=== PATIENT | male | born 1980 | race Caucasian/White ===

== ENCOUNTER → 2023-01-31 | Outpatient (CLI) | payer OTHER, SELFPAY ==
--- NOTE | 2023-01-31 12:34 | RAD_ITS ---
STUDY: X-RAY - RIGHT ANKLE REASON FOR EXAM: Male, 42 years old. ANKLE PAIN TECHNIQUE: 3 view(s) of the ankle. COMPARISON: None. FINDINGS: In the distal fibula there is a visualized well-circumscribed eccentric cortical lesion measuring 2 x 0.8 cm with a narrow zone of transition compatible with a benign bone lesion, ossified fibroma. Normal medial and lateral malleoli. Normal tibiotalar articulation and ankle mortise. Normal visualized talus and calcaneus. The visualized subtalar, talonavicular, calcaneocuboid and tarsal articulations are normal. The soft tissue structures are unremarkable. RAD/Ankle min 3 Views IMPRESSION: No visualized acute fracture. Incidental visualization of a benign bone lesion in the distal tibia.. Electronically Signed: Fara Santiago MD at 1:21 EDT ,
[2023-01-31 13:10] LABS: Bacteria 0 SEEN /hpf (None Seen); Mucous, Urine 0 SEEN /hpf (<or=2+); Squamous Epithelial Cells - UA 0 SEEN /hpf (0-5); White Blood Cells 0 SEEN /hpf (0-5)
[2023-01-31 15:37] LABS: Color, Urine Yellow (Yellow); Glucose, Dipstick Normal (Normal); Ketone-Dipstick Negative (Negative); Leukocyte Esterase-Dipstick Negative /ul (Negative); Nitrite-Dipstick Negative (Negative); Occult Blood-Urine 25 /ul (Negative); Protein-Dipstick Negative (Negative); Urine Bilirubin Dipstick Negative (Negative); Urine Clarity Clear (Clear); Urine Urobilinogen Normal (Normal)
[2023-01-31 15:42] LABS: Absolute Lymphocyte Count 2.37 X10^3/uL (0.83-4.51); Absolute Neutrophil Count 3.5 X10^3/uL (2.0-7.7); Basophil# 0.09 X10^3/uL; Basophil% 1.3 % (0-1); Eosinophil# 0.42 X10^3/uL; Eosinophils% 5.9 % (0-5); Hematocrit 45.3 % (40-54); Lymphocyte # 2.37 X10^3/ul (0.83-4.51); Lymphocyte % 33.6 % (19-41); Mean Corp Hgb Conc 33.1 g/dL (32-36); Mean Corpuscular Hgb 29.1 pg (27.0-32.0); Mean Corpuscular Volume 87.8 fL (80-94); Monocyte# 0.63 X10^3/uL; Monocyte% 8.9 % (0-10); NRBC Flagged by Analyzer 0 % (0-5); Neutrophil # 3.53 X10^3/uL (2.7-7.7); Platelet Count 322 K/mm3 (150-450); RBC Distribution Width CV 12.2 % (11.6-14.6); RBC Distribution Width SD 39.5 fl (35.1-43.9); Red Blood Count 5.16 M/mm3 (4.6-6.2); White Blood Count 7.1 K/mm3 (4.4-11.0)
[2023-01-31 15:50] LABS: Red Blood Cells-Urine 0-5 SEEN /hpf (0-5)
[2023-01-31 15:59] LABS: ALB/GLOB Ratio 1.2 RATIO (0.9-2.4); AST(SGOT) 23 U/L (15-37); Alanine Aminotransfer ALT/SGPT 40 U/L (16-61); Alkaline Phosphatase 68 U/L (45-117); Anion Gap 3 (5-15); BUN 21 mg/dL (7-18); BUN/Creat Ratio 19.4 RATIO (10-20); Calcium,Total 9.1 mg/dL (8.5-10.1); Chloride 102 mmol/L (98-107); Cholesterol 203 mg/dL (200); Creatinine, Serum 1.08 mg/dL (0.70-1.30); EST Glomerular Filtration Rate 79 mL/min (>60); Est Glom Filt Rate - Afr Amer 95 mL/min (>60); Globulin 3.2 g/dL (2.2-4.2); Glucose 100 mg/dL (74-106); High Density Lipoprotein 64 mg/dL; Potassium 4.2 mmol/L (3.5-5.1); Protein, Total 7.2 g/dL (6.4-8.2); Sodium Level 135 mmol/L (136-145); Thyroid Stim Hormone (TSH) 1.16 uIU/mL (0.358-3.74); Triglycerides 83 mg/dL; Very Low Density Lipoprotein 17 mg/dL (5-40)
== END | disposition home or self-care (01) ==
PROVIDERS: PCP Family Medicine; Referring Provider Family Medicine; Visit Provider Family Medicine
DX: Z00.00 Encounter for general adult medical examination without abnormal findings (principal); M25.571 Pain in right ankle and joints of right foot; F17.220 Nicotine dependence, chewing tobacco, uncomplicated
CPT/HCPCS: 36415; 73610; 80053; 80061; 81001; 84443; 85025

== ENCOUNTER → 2023-05-22 | Outpatient (CLI) | payer OTHER, SELFPAY ==
[2023-05-22 18:06] LABS: Absolute Lymphocyte Count 2.01 X10^3/uL (0.83-4.51); Absolute Neutrophil Count 4.2 X10^3/uL (2.0-7.7); Basophil# 0.09 X10^3/uL; Basophil% 1.2 % (0-1); Eosinophil# 0.66 X10^3/uL; Eosinophils% 8.6 % (0-5); Hematocrit 44.7 % (40-54); Hemoglobin 14.9 g/dL (13.0-16.5); Lymphocyte # 2.01 X10^3/ul (0.83-4.51); Lymphocyte % 26.1 % (19-41); Mean Corp Hgb Conc 33.3 g/dL (32-36); Mean Corpuscular Hgb 29.4 pg (27.0-32.0); Mean Corpuscular Volume 88.2 fL (80-94); Mean Platelet Vol. 10.6 fl (6.2-12.0); Monocyte# 0.73 X10^3/uL; Monocyte% 9.5 % (0-10); NRBC Flagged by Analyzer 0 % (0-5); Neutrophil % 54.5 % (47-70); Platelet Count 358 K/mm3 (150-450); RBC Distribution Width CV 12.1 % (11.6-14.6); RBC Distribution Width SD 39.4 fl (35.1-43.9); Red Blood Count 5.07 M/mm3 (4.6-6.2); White Blood Count 7.7 K/mm3 (4.4-11.0)
[2023-05-22 18:34] LABS: ALB/GLOB Ratio 1.2 RATIO (0.9-2.4); AST(SGOT) 22 U/L (15-37); Alanine Aminotransfer ALT/SGPT 44 U/L (16-61); Alkaline Phosphatase 70 U/L (45-117); Anion Gap 6 (5-15); BUN 19 mg/dL (7-18); BUN/Creat Ratio 18.3 RATIO (10-20); Calcium,Total 8.7 mg/dL (8.5-10.1); Chloride 103 mmol/L (98-107); Cholesterol 192 mg/dL (200); Creatinine, Serum 1.04 mg/dL (0.70-1.30); EST Glomerular Filtration Rate 82 mL/min (>60); Est Glom Filt Rate - Afr Amer 100 mL/min (>60); Globulin 3.3 g/dL (2.2-4.2); Glucose 92 mg/dL (74-106); High Density Lipoprotein 57 mg/dL; Potassium 3.9 mmol/L (3.5-5.1); Protein, Total 7.3 g/dL (6.4-8.2); Sodium Level 138 mmol/L (136-145); Triglycerides 219 mg/dL; Troponin-I HS 4 pg/mL (3.0-78.0); Very Low Density Lipoprotein 44 mg/dL (5-40)
== END | disposition home or self-care (01) ==
LOC: MFPLAB 16:14
PROVIDERS: PCP Family Medicine; Visit Provider Family Medicine
DX: R07.89 Other chest pain (principal)
CPT/HCPCS: 36415; 80053; 80061; 84484; 85025

== ENCOUNTER → 2023-06-19 | Outpatient (CLI) | payer OTHER, SELFPAY ==
--- NOTE | 2023-06-19 13:41 | STE_ITS ---
Reason For Study: Chest Pain Stress Results Protocol: Stress Echocardiogram-Rasta Protocol Maximum Predicted HR: 176 bpm Target HR: 150 bpm % Maximum Predicted HR: 92 % DurationHeart Rate Stage (mm:ss) (bpm) BP Comment Baseline 51 118/81Patient denies any chest pain Stage 1 3:00 83 144/71Patient denies chest pain Stage 2 3:00 106 150/70Patient denies chest pain Stage 3 3:00 146 180/80Patient denies chest pain Stage 4 3:00 148 208/86Patient denies chest pain Stage 5 1:00 162 / Leg fatigue, mild shortness of breath, no chest pain Recovery 92 146/80Patient denies chest pain Stress Duration: 13:00 mm:ss Maximum Stress HR: 162 bpm Baseline Echocardiogram Findings Stress Echo Wall motion Data Resting WM Intermediate WM Stress WM ECHO/Stress Test Echo w/o Contrast Interpretation Summary Stress echocardiogram. Reason for evaluation chest pain. Stress EKG. Resting EKG demonstrates sinus bradycardia with a rate of 50 bpm normal interva ls are noted resting blood pressure is 118/81 mmHg. The patient exercised according to regular Rasta protocol for total duration of 13 minutes completing 1 minute into stage V of the Rasta protocol t he maximum heart rate attained was 164 bpm which was 93% of max impacted heart rate the maximum workl oad was 17.2 metabolic equivalents. At rest there were no ST or T wave changes noted suggest ischemia and at peak exercise upsloping ST changes were noted which did not meet the criteria for is chemia. The peak blood pressure was 208/86 mmHg which was a hypertensive response to exercise. M ild shortness of breath was noted. Stress echocardiogram. Resting echocardiogram demonstrated mildly globally reduced ejection fraction e stimated to be 50%. At peak exercise there was thickening of all brown improving ejection fraction to approximately 55%. No wall motion abnormalities were noted. Conclusion: Exercise stress echo with no evidence of ischemia at a high workload. Good functional aerobic capacity noted. Mild resting cardiomyopathy present. Ordering Physician: Suraj Martinez Referring Physician: Suraj Martinez Performed By: Vicki Bean RCS
== END | disposition home or self-care (01) ==
LOC: CVS 13:38
PROVIDERS: PCP Family Medicine; Referring Provider Family Medicine; Visit Provider Family Medicine
DX: R07.89 Other chest pain (principal)
CPT/HCPCS: 93017; 93350

== ENCOUNTER → 2024-08-05 | Outpatient (CLI) | payer OTHER, SELFPAY ==
[2024-08-05 14:57] LABS: Bacteria 0 SEEN /hpf (None Seen); Mucous, Urine 0 SEEN /hpf (<or=2+)
[2024-08-05 18:10] LABS: Absolute Lymphocyte Count 2.25 X10^3/uL (0.83-4.51); Absolute Neutrophil Count 3.6 X10^3/uL (2.0-7.7); Basophil# 0.12 X10^3/uL; Basophil% 1.7 % (0-1); Eosinophil# 0.32 X10^3/uL; Eosinophils% 4.5 % (0-5); Hematocrit 44.3 % (40-54); Hemoglobin 14.3 g/dL (13.0-16.5); Lymphocyte # 2.25 X10^3/ul (0.83-4.51); Mean Corp Hgb Conc 32.3 g/dL (32-36); Mean Corpuscular Hgb 28.4 pg (27.0-32.0); Mean Corpuscular Volume 88.1 fL (80-94); Mean Platelet Vol. 10.8 fl (6.2-12.0); Monocyte# 0.76 X10^3/uL; Monocyte% 10.8 % (0-10); NRBC Flagged by Analyzer 0 % (0-5); Neutrophil # 3.58 X10^3/uL (2.7-7.7); Neutrophil % 50.9 % (47-70); Platelet Count 384 K/mm3 (150-450); RBC Distribution Width CV 12.4 % (11.6-14.6); RBC Distribution Width SD 39.9 fl (35.1-43.9); Red Blood Count 5.03 M/mm3 (4.6-6.2)
[2024-08-05 18:13] LABS: Color, Urine Yellow (Yellow); Glucose, Dipstick Normal (Normal); Ketone-Dipstick Negative (Negative); Leukocyte Esterase-Dipstick Negative /ul (Negative); Nitrite-Dipstick Negative (Negative); Occult Blood-Urine 25 /ul (Negative); Protein-Dipstick Negative (Negative); Specific Gravity, Urine 1.015 (1.002-1.030); Urine Bilirubin Dipstick Negative (Negative); Urine Clarity Clear (Clear); Urine Urobilinogen Normal (Normal)
[2024-08-05 18:23] LABS: ALB/GLOB Ratio 1.3 RATIO (0.9-2.4); AST(SGOT) 28 U/L (15-37); Alanine Aminotransfer ALT/SGPT 37 U/L (16-61); Albumin, Serum 4.2 g/dL (3.2-5.0); Alkaline Phosphatase 69 U/L (45-117); Anion Gap 2 (5-15); BUN 21 mg/dL (7-18); BUN/Creat Ratio 19.6 RATIO (10-20); Calcium,Total 9.8 mg/dL (8.5-10.1); Chloride 101 mmol/L (98-107); Cholesterol 228 mg/dL (200); Creatinine, Serum 1.07 mg/dL (0.70-1.30); EST Glomerular Filtration Rate 79 mL/min (>60); Est Glom Filt Rate - Afr Amer 96 mL/min (>60); Globulin 3.3 g/dL (2.2-4.2); Glucose 91 mg/dL (74-106); High Density Lipoprotein 79 mg/dL; PSA,Total - Annual Screen 0.43 ng/mL (0.00-4.00); Protein, Total 7.5 g/dL (6.4-8.2); Sodium Level 134 mmol/L (136-145); Triglycerides 74 mg/dL; Very Low Density Lipoprotein 15 mg/dL (5-40)
[2024-08-05 18:28] LABS: Red Blood Cells-Urine 0-5 SEEN /hpf (0-5); Squamous Epithelial Cells - UA 0-5 SEEN /hpf (0-5); White Blood Cells 0-5 SEEN /hpf (0-5)
--- OUTSIDE RECORDS SUMMARY | 2024-08-05 18:39 | XMS RPT_ITS | CCD ---
Author Organization [place] [employer] [facility] Care Team Providers Care Set Rider Name Role Phone ELTON CROWDER Unavailable Unavailable ELTON CROWDER Unavailable Unavailable Problems Problem Classification Problem Date Documented Date Episodic/Chronic Immunizations and screening for infectious disease (4 sources) Encounter for screening for human immunodeficiency virus [HIV]; Translations: [Encounter for screening for other viral diseases] Onset: 01-21-2018 Episodic Results Test Name Value Interpretation Reference Range Facil ity CNOVon 12-18-2021 CNOV Office Visit ([facility] ) RASTA STEVEN JR ([id number]) 1980 M Date Time Provider Department 12/18/21 6:45 PM ZANDRA BLANC [facility] During your visit today, we recorded the following information about you: Temperature Pulse Respiration Blood pressure 97.4 degrees 65/minute 21/minute 130/86 Weight 98.9 kg Zandra Blanc APRN.CNP 12/18/2021 7:03 PM Signed CC: Patient presents with: Sore Throat: x 2 days HPI: Rasta Steven is a 41 year old male who presents to the office with complaint of sore throat for a few days. Symptoms are worsening Associated symptoms includes sore throat. Denies body aches, fever, nausea, vomiting and diarrhea. Treatments tried include nothing so far. with no relief of symptoms. Sick contacts: unknown. History of asthma, frequent episodes of bronchitis, chronic bronchitis, bronchiectasis or COPD: No Smoker: No Seasonal/environmental allergies: No The ROS is otherwise negative. The patient's pmh, medications, allergies, and past visits are reviewed. PHYSICAL EXAM: BP 130/86 Pulse 65 Temp 36.3 ?C (97.4 ?F) Resp 21 Wt 98.9 kg (218 lb) SpO2 100% General appearance: alert, cooperative, pleasant, in no acute distress Head: Normocephalic Eyes: EOM's intact, conjunctiva pink and moist, no icterus, sclera white, non-injected Oropharynx:moderate erythema, with exudates present Heart: Negative. RRR without obvious murmur, gallop, or rubs. No ectopy. Lungs: clear to auscultation, without rales or wheeze, good air exchange PAST MEDICAL HISTORY Diagnosis Date - DDD (degenerative disc disease), lumbar - NEGATIVE MEDICAL HISTORY PAST SURGICAL HISTORY Procedure Laterality Date - NONE ALLERGIES Patient has no known allergies. MEDICATIONS cyclobenzaprine (FLEXERIL) 10 mg tablet Take 1 tablet by mouth three times daily as needed for Muscle Spasm. No family history on file. Social History Tobacco Use - Smoking status: Never Smoker - Smokeless tobacco: Current User Types: Chew Vaping Use - Vaping Use: Never used Substance Use Topics - Alcohol use: No - Drug use: No ASSESSMENT/PLAN: 1. Sore throat - ICD9: 462, ICD10: J02.9 - STREP A MOLECULAR (POC) - negative At this time patient was instructed to monitor symptoms for any changes or worsening. Take OTC pain medication to control pain and Potential red flag symptoms discussed with the patient. Patient will follow up if symptoms worsen. Reviewed appropriate action plan to take if red flag symptoms occur. Patient agreeable to treatment plan. Zandra Blanc APRN.ALEE Blanc APRN.CNP 12/18/2021 7:00 PM Signed Sore Throat (Pharyngitis) What is a sore throat? When your child complains that his throat is sore, it is usually a symptom of an illness, such as a cold. When you look at the throat with a light, it will be bright red. Children too young to talk may have a sore throat if they refuse to eat or begin to cry during feedings. What is the cause? Most sore throats are caused by viruses and are part of a cold. About 10% of sore throats are caused by strep bacteria. Tonsillitis (temporary swelling and redness of the tonsils) usually occurs with any throat infection, viral or bacterial. Swollen tonsils do not have any special meaning. Children who sleep with their mouths open often wake up in the morning with a dry mouth and sore throat. It feels better within an hour of having something to drink. Use a humidifier to help prevent this problem. Children with a postnasal drip from draining sinuses often have a sore throat from the secretions or from clearing their throat often. How long does it last? Sore throats caused by viral illnesses usually last 4 or 5 days. A sore throat caused by Strep will start feeling better soon after being treated with penicillin or other antibiotics. After a child has been taking medicine for strep for 24 hours, strep is no longer contagious. Your child can then return to day care or school if his fever is gone and he's feeling better. Your child must take all of the antibiotic even if he is feeling better. If your child doesn't take all of the medicine, the sore throat could come back. Why do a throat culture? A throat culture or rapid strep test is the only way to know whether a sore throat is caused by strep bacteria or a virus. Without treatment, a strep throat has a small risk for acute rheumatic fever. Rheumatic fever is a complication of strep infections that can lead to permanent damage to the valves of the heart. The throat culture is not urgent, however, since treating a strep infection within 7 days of when it begins can prevent rheumatic fever. A throat culture is not necessary if your child's sore throat is part of a cold AND the main symptom is croup, hoarseness, or a cough, unless the sore throat lasts more than 5 days. R (more content not included)... Normal [facility] RPRon 10-19-2020 Reagin Ab RPR Ql (S) Non-Reactive Normal Non-Reactive [facility] ([place]) Comment on above: Result Comment: The RPR test is a non-tr eponemal assay useful as an aid in the diagnosis of primary and secondary syphilis. It converts to positive generally within 2 weeks after the appearance of a lesion. This test is also useful for monitoring response to antibiotic therapy. A positive RPR screening test will be followed by the FTA ABS test. False positive RPR tests may occur in 1) patients with underlying autoimmune disorders, 2) elderly patients, 3) , and 4) other conditions with abnormal serum globulins. Performed By: #### H BSAG, RPR, HCV1 #### [place] [id number] #### HIVRP #### [place] [address] HBSAGon 10-18-2020 Hep B Surf Ag Non-Reactive Normal Non-Reactive [facility] ([place]) Comment on above: Performed By: #### HBSAG, RPR, HCV1 #### [place] [address] #### HIVRP #### [place] [address] HCVon 10-18-2020 Hep C Ab Non-Reactive Normal Non-Reactive [facility] ([place]) Comment on above: Performed By: #### HBSAG, RPR, HCV1 #### [place] [address] #### HIVRP #### [place] [address] Hep C Ab Int Normal [facility] ([place]) Comment on above: Result Comment: Nonreactive: Samples wit h a value < 0.80 are considered nonreactive (negative) for antibodies to HCV. A negative test result does not exclude the possibility of exposure to or infection with HCV. HCV antibodies may be undetectable in some stages of the infection and in some clinical conditions. See Interp Performed By: #### H BSAG, RPR, HCV1 #### [place] [address] #### HIVRP #### [place] [address] HIVRPon 10-17-2020 HIV p24 Antigen Non-Reactive Normal Non-Reactive [facility] ([place]) Comment on above: Result Comment: Detection of p24 may be inhibited by biotin in the sample, causing false negative results in acute infection. Therefore do not test samples from patients who are taking biotin. Performed By: #### H BSAG, RPR, HCV1 #### [address] [address] #### HIVRP #### [address] [address] HIV P24 Int Non-reactive [facility] ([place]) Comment on above: Performed By: #### HBSAG, RPR, HCV1 #### [place] [address] #### HIVRP #### [address] [address] Rapid HIV 1/2 Antibody Non-Reactive Normal Non-Reactive [facility] ([place]) Comment on above: Performed By: #### HBSAG, RPR, HCV1 #### [place] [address] #### HIVRP #### [place] [id number] RHIV 1/2 Ab Int Non-Reactive [facility] ([place]) Comment on above: Performed By: #### HBSAG, RPR, HCV1 #### [place] [address] #### HIVRP #### [place] [id number] HIV 1,2 Ab; p24 Agon 018 HIV 1,2 Ab; p24 Ag NONREACTIVE Normal Nonreactive [facility] Comment on above: Result Comment: Results obtained using t FDA cleared 4th generation HIVtest. This test detects antibodies to HIV1, HIV2, HIV Group O,and the presence of the HIV-1 p24 antigen. A Non-Reactive re-sult indicates the patient is negative for both HIV antibodyand HIV p24 antigen. All reactive results will undergo reflexconfirmation testing at an additional charge. Performed By: #### H IV4, HBSAG, HEPC, RPR ####The performing lab is in the report. Hep B Surface Agon 8 Hep B Surface Ag NOT DETECTED Normal Not-Detected [facility] Comment on above: Performed By: #### HIV4, HBSAG, HEPC, RP R ####The performing lab is in the report. Hep C Antibodyon 01-22-2018 Hep C Antibody NOT DETECTED Normal Not-Detected [facility] Comment on above: Result Comment: Patients with DETECTED H epatitis C Ab results should have a new specimensubmitted for supplemental testing with a Hepatitis C Quantitative RNA assay(viral load), if clinically indicated. Performed By: #### H IV4, HBSAG, HEPC, RPR ####The performing lab is in the report. RPR, Qualon 01-22-2018 RPR, Qual NONREACTIVE Normal Non-Reactive [facility] Comment on above: Performed By: #### HIV4, HBSAG, HEPC, RP R ####The performing lab is in the report. Encounters Encounter Date Encounter Type Care Provider Facility Start: 01-21-2018 Ambulatory ELTON CROWDER [facility] Payers Date Payer Category Payer Policy ID Unknown Progress note 12-18-2021 Note Date & Type Note Facility 12-18-2021 Note HNO ID: [id number] Author: Zandra Blanc APRN.[employer] ACCOUNTANT Service: ? Author Type: Nurse Practitioner Type: Progress Notes Filed: 12/18/2021 7:03 PM Note Text: CC: Patient presents with: Sore Throat: x 2 days HPI: Rasta Rust Rachell Rodriguez is a 41 year old male who presents to the office with complaint of sore throat for a few days. Symptoms are worsening Associated symptoms includes sore throat. Denies body aches, fever, nausea, vomiting and diarrhea. Treatments tried include nothing so far. with no relief of symptoms. Sick contacts: unknown. History of asthma, frequent episodes of bronchitis, chronic bronchitis, bronchiectasis or COPD: No Smoker: No Seasonal/environmental allergies: No The ROS is otherwise negative. The patient's pmh, medications, allergies, and past visits are reviewed. PHYSICAL EXAM: BP 130/86 Pulse 65 Temp 36.3 ?C (97.4 ?F) Resp 21 Wt 98.9 kg (218 lb) SpO2 100% General appearance: alert, cooperative, pleasant, in no acute distress Head: Normocephalic Eyes: EOM's intact, conjunctiva pink and moist, no icterus, sclera white, non-injected Oropharynx:moderate erythema, with exudates present Heart: Negative. RRR without obvious murmur, gallop, or rubs. No ectopy. Lungs: clear to auscultation, without rales or wheeze, good air exchange PAST MEDICAL HISTORY Diagnosis Date - DDD (degenerative disc disease), lumbar - NEGATIVE MEDICAL HISTORY PAST SURGICAL HISTORY Procedure Laterality Date - NONE ALLERGIES Patient has no known allergies. MEDICATIONS cyclobenzaprine (FLEXERIL) 10 mg tablet Take 1 tablet by mouth three times daily as needed for Muscle Spasm. No family history on file. Social History Tobacco Use - Smoking status: Never Smoker - Smokeless tobacco: Current User Types: Chew Vaping Use - Vaping Use: Never used Substance Use Topics - Alcohol use: No - Drug use: No ASSESSMENT/PLAN: 1. Sore throat - ICD9: 462, ICD10: J02.9 - STREP A MOLECULAR (POC) - negative At this time patient was instructed to monitor symptoms for any changes or worsening. Take OTC pain medication to control pain and Potential red flag symptoms discussed with the patient. Patient will follow up if symptoms worsen. Reviewed appropriate action plan to take if red flag symptoms occur. Patient agreeable to treatment plan. Zandra Blanc APRN.[facility] Summary Purpose Family History No Family History Records FoundNo Family History Records FoundNo Family History Records Found Advance Directives No Advanced Directives Records FoundNo Advanced Directives Records FoundNo Advanced Directives Records Found Additional Source Comments (unrecognized sect ion and content) No Status Records FoundNo Status Records FoundNo Status Records Found INFORMATION SOURCE (unrecogn ized section and content) DATE CREATED AUTHOR 04/17/2018 [employer] DATE CREATED AUTHOR AUTHOR'S ORGANIZ ATION 10/19/2020 [facility] ([place]) DATE CREATED AUTHOR AUTHOR'S ORGANIZ ATION 01/09/2022 [facility] FOR RECORDS PERTAINING TO PATIENTS WHO ARE OR HAVE BEEN ENROLLED IN A CHEMICAL DEPENDENCY/SUBSTANCEABUSE PROGRAM, SOME INFORMATION MAY BE OMITTED. This clinical summary was aggregated from multiple sources. Caution should be exercised in using it in the provision of clinical care. This summary normalizes information from multiple sources, and as a consequence, information in this document may materially change the coding, format and clinical context of patient data. In addition, data may be omitted in some cases. CLINICAL DECISIONS SHOULD BE BASED ON THE PRIMARY CLINICAL RECORDS. [employer] [facility]. provides no warranty or guarantee of the accuracy or completeness of information in this document.
== END | disposition home or self-care (01) ==
LOC: MFPLAB 14:47
PROVIDERS: PCP Family Medicine; Visit Provider Family Medicine
DX: Z00.00 Encounter for general adult medical examination without abnormal findings (principal); F17.220 Nicotine dependence, chewing tobacco, uncomplicated; Z12.5 Encounter for screening for malignant neoplasm of prostate
CPT/HCPCS: 36415; 80053; 80061; 81001; 84153; 85025; G0103